=== PATIENT | male | born 1995 | race African-American/Black ===

== ENCOUNTER 2016-06-15 10:30 | Emergency (ER) | payer OTHER, SELFPAY ==
[2016-06-15] MEDS ORDERED: Fluorescein Opthalmic Strip ONE (10:45)
[2016-06-15] MEDS ORDERED: Tetracaine HCl 0.5% Ophth Soln 2 ML Bottle ONE (10:45)
[2016-06-15] MEDS ORDERED: Gentamicin Ophth Soln 0.3% 5 ml Bottle ONE (11:11)
== END 2016-06-15 12:07 | disposition home or self-care (01) ==
LOC: NAV ERS 10:30
DX: S05.01XA Injury of conjunctiva and corneal abrasion without foreign body, right eye, initial encounter (principal); H10.9 Unspecified conjunctivitis; F17.210 Nicotine dependence, cigarettes, uncomplicated; X58.XXXA Exposure to other specified factors, initial encounter
CPT/HCPCS: 99283

== ENCOUNTER 2016-08-16 14:36 | Emergency (ER) | payer SELFPAY ==
[2016-08-16] MEDS ORDERED: Tetracaine HCl 0.5% Ophth Soln 2 ML Bottle ONE (14:50)
[2016-08-16] MEDS ORDERED: Fluorescein Opthalmic Strip ONE (14:50)
[2016-08-16] MEDS ORDERED: Nitrazine Tape 1 ROLL ONE (14:54)
[2016-08-16] MEDS ORDERED: Sodium Chloride 0.9% 500 ML ONE (14:55)
== END 2016-08-16 15:18 | disposition home or self-care (01) ==
LOC: NAV ERS 14:36
DX: Z77.098 Contact with and (suspected) exposure to other hazardous, chiefly nonmedicinal, chemicals (principal); F17.210 Nicotine dependence, cigarettes, uncomplicated
CPT/HCPCS: 99283; J7050

== ENCOUNTER 2018-11-08 10:17 | Emergency (ER) | payer SELFPAY | END 2018-11-08 11:13 | disposition home or self-care (01) | LOC: NAV ERS 10:17 | DX: I10 Essential (primary) hypertension (principal); F17.210 Nicotine dependence, cigarettes, uncomplicated | CPT/HCPCS: 99282 ==

== ENCOUNTER 2019-04-27 21:52 | Emergency (ER) | payer SELFPAY ==
[2019-04-27] MEDS ORDERED: Ibuprofen 800 MG TAB ONE (22:22)
== END 2019-04-27 22:28 | disposition home or self-care (01) ==
LOC: NAV ERS 21:52
DX: J11.1 Influenza due to unidentified influenza virus with other respiratory manifestations (principal); F17.210 Nicotine dependence, cigarettes, uncomplicated; I10 Essential (primary) hypertension
CPT/HCPCS: 99283

== ENCOUNTER 2020-03-05 20:49 | Emergency (ER) | payer SELFPAY ==
[2020-03-05] MEDS ORDERED: Lidocaine 1% (PF) 30 ML VIAL ONE (21:06)
== END 2020-03-05 21:35 | disposition home or self-care (01) ==
LOC: NAV ERS 20:49
DX: K61.0 Anal abscess (principal); I10 Essential (primary) hypertension; F17.210 Nicotine dependence, cigarettes, uncomplicated
CPT/HCPCS: 10060; J2001

== ENCOUNTER 2020-09-20 13:31 | Emergency (ER) | payer SELFPAY ==
[2020-09-20] MEDS ORDERED: Aspirin Chewable 81 MG TAB ONE (14:01)
[2020-09-20 14:31] LABS: ALT (SGPT) 43 U/L (8-55); AST (SGOT) 54 U/L (5-34); Alkaline Phosphatase 112 U/L (40-110); Anion Gap 11 mmol/L (10-20); BUN (Urea Nitrogen) 10 mg/dL (8.9-20.6); Bilirubin, Total 0.5 mg/dL (0.2-1.2); Calc. Creatinine Clearance 0 mL/min (70-130); Calcium 9.1 mg/dL (7.8-10.44); Carbon Dioxide 25 mmol/L (22-29); Chloride 104 mmol/L (98-107); Globulin 4.2 g/dL (2.4-3.5); Glucose 97 mg/dL (70-105); Lipase 9 U/L (8-78); Potassium 4.1 mmol/L (3.5-5.1); Protein, Total 8.2 g/dL (6.0-8.3); Sodium 136 mmol/L (136-145)
[2020-09-20 14:39] LABS: Hemoglobin 15.2 g/dL (14.0-18.0); Mean Corpuscular HGB CONC 30.8 g/dL (32.0-36.0); Mean Corpuscular Hemoglobin 29.9 pg (27.0-31.0); Mean Corpuscular Volume 97.3 fL (78.0-98.0); Mean Platelet Volume 8.6 fL (7.4-10.4); Platelet Count 142 thou/uL (130-400); RBC Distribution Width 12.3 % (11.5-14.5); Red Blood Cell (RBC) Count 5.08 mill/uL (4.70-6.10); White Blood Cell (WBC) Count 5.3 thou/uL (4.8-10.8)
[2020-09-20 15:37] LABS: Eosinophils 1 % (0-10); Lymphocytes 52 % (21-51); MDiff Complete? YES; Monocytes 9 % (0-10); Neutrophil 38 % (42-75); RBC Morphology Normal
== END 2020-09-20 15:20 | disposition home or self-care (01) ==
LOC: NAV ERS 13:31
DX: R07.89 Other chest pain (principal); I10 Essential (primary) hypertension; F17.290 Nicotine dependence, other tobacco product, uncomplicated
CPT/HCPCS: 71046; 80053; 83690; 84484; 85025; 93005; 94760

== ENCOUNTER 2021-05-31 20:09 | Emergency (ER) | payer SELFPAY | END 2021-05-31 21:37 | disposition home or self-care (01) | LOC: NAV ERS 20:09 | DX: S93.402A Sprain of unspecified ligament of left ankle, initial encounter (principal); I10 Essential (primary) hypertension; F17.210 Nicotine dependence, cigarettes, uncomplicated; X58.XXXA Exposure to other specified factors, initial encounter; Y93.01 Activity, walking, marching and hiking ==

== ENCOUNTER 2021-06-15 12:24 | Emergency (ER) | payer SELFPAY | END 2021-06-15 13:32 | disposition home or self-care (01) | LOC: NAV ERS 12:24 | DX: J02.9 Acute pharyngitis, unspecified (principal); H65.93 Unspecified nonsuppurative otitis media, bilateral; I10 Essential (primary) hypertension; F17.290 Nicotine dependence, other tobacco product, uncomplicated | CPT/HCPCS: 87081; 87430; 99283 ==

== ENCOUNTER 2022-09-11 18:23 | Emergency (ER) | payer BC, SELFPAY | END 2022-09-11 19:35 | disposition home or self-care (01) | LOC: NAV ERS 18:23 | DX: H66.91 Otitis media, unspecified, right ear (principal); I10 Essential (primary) hypertension; F17.200 Nicotine dependence, unspecified, uncomplicated | CPT/HCPCS: 99282 ==

== ENCOUNTER 2023-01-28 03:21 | Emergency (ER) | payer BC ==
[2023-01-28] MEDS ORDERED: Fluconazole 100 MG TAB ONE (03:48)
== END 2023-01-28 03:59 | disposition home or self-care (01) ==
LOC: NAV ERS 03:21
DX: J02.9 Acute pharyngitis, unspecified (principal); I10 Essential (primary) hypertension; F17.200 Nicotine dependence, unspecified, uncomplicated
CPT/HCPCS: 87070; 99283